=== PATIENT | female | born 1990 | race Caucasian/White ===

== ENCOUNTER 2024-02-16 15:13 | Emergency (ER) | payer MEDICAID ==
[~2024-02-16] VITALS: Ht 165.1 cm; Wt 54.4 kg
[2024-02-16 15:46] VITALS: O2SAT 99
[2024-02-16 16:04] LABS: *BILIRUBIN,URIN NEGATIVE (NEGATIVE); *BLOOD, URINE 3+ (NEGATIVE); *CLARITY,URINE SLIGHTLY CLOUDY (CLEAR); *COLOR,URINE YELLOW (YELLOW); *KETONES,URINE NEGATIVE (NEGATIVE); *PROTEIN,URINE 2+ (NEGATIVE); *UROBILINOGEN,URINE 0.2 E.U./dl (NORMAL); LEUKOCYTE ESTERASE ,URINE 1+ (NEGATIVE); NITRITE, URINE NEGATIVE (NEGATIVE); PH,URINE 6.5 (5.0-8.0); UGLUCOSE NEGATIVE (NEGATIVE)
[2024-02-16 16:28] LABS: *URINE HCG, QUAL NEGATIVE (NEGATIVE)
[2024-02-16 16:44] LABS: WBC,URINE 0-3 /HPF (0-3)
[2024-02-16] MEDS ORDERED: PHENAZOPYRIDINE HCL 100 MG TABLET ONE (17:42)
[2024-02-16] MEDS ORDERED: SULFAMETH/TRIMETH 800/160 MG TABLET ONE (17:42)
[2024-02-16] MEDS ORDERED: SULF1TAB48 PO (17:43)
[2024-02-16] MEDS ORDERED: PHEN-704 PO (17:43)
[2024-02-16] MEDS: PHENAZOPYRIDINE HCL 100 MG TABLET PO ONE (17:44)
[2024-02-16] MEDS: SULFAMETH/TRIMETH 800/160 MG TABLET PO ONE (17:44)
== END 2024-02-16 17:59 | disposition home or self-care (01) ==
LOC: ER 15:14
DX: N30.90 Cystitis, unspecified without hematuria (principal); R10.2 Pelvic and perineal pain; Z79.899 Other long term (current) drug therapy
CPT/HCPCS: 84703; A4606; A4663